=== PATIENT | female | born 1980 | race Asian ===

== ENCOUNTER 2017-02-10 14:04 | Emergency (ER) | payer OTHER ==
[~2017-02-10] VITALS: Ht 167.6 cm; Wt 84.4 kg
[~2017-02-10 14:04] MED LIST: ACID CONTROL150 MG OR; ALBU90AE13 INH; ALPR1TAB61 PO; AMBIEN5 MG PO; AMIT25TA22 PO; AMOX875T8 PO; CIPRO500 MG PO; CLARITIN10 M1 PO; CLON0.5T36 PO; CYCL10TA35 PO; CYPR4TAB PO; FERR325T5 PO; FERROUS SULF325 M1 PO; FURO20TA67 PO; GABA300C2 PO; HYDR-2748 PO; HYDR10TA47 PO; HYDR10TA47A PO; KLOR-CON M1010 MEQ PO; LEXAPRO10 MG OR; LIDOPATCH TOP; LORA10TA3 PO; MEDROL DOSEPAK4 MG OR; MEDROL DOSEPAK4 MG PO; MOBIC7.5 M1 PO; MUPI2OIN2 TOP; NORETHIN ACE5 MG PO; NYSTATIN100000 MG PO; PROM25TA52 PO; PYRIDIUM100 MG PO; TRIM800T12 PO; XANAX XR1 MG OR; XANAX XR1 MG PO; ZANTAC300 MG PO
[2017-02-10] MEDS ORDERED: OXYCODONE30 MG PO (17:54)
[2017-02-10 18:10] VITALS: BP 141/84; TEMP 99.1
== END 2017-02-10 18:14 | disposition home or self-care (01) ==
LOC: ED 14:04
DX: S13.8XXA Sprain of joints and ligaments of other parts of neck, initial encounter (principal); V43.52XA Car driver injured in collision with other type car in traffic accident, initial encounter; Y93.89 Activity, other specified; Y92.89 Other specified places as the place of occurrence of the external cause; Y99.8 Other external cause status; S39.012A Strain of muscle, fascia and tendon of lower back, initial encounter
CPT/HCPCS: 99281

== ENCOUNTER 2017-09-14 07:59 | Outpatient (CLI) | payer OTHER ==
[~2017-09-14 07:59] MED LIST changes: +OXYCODONE30 MG PO
[2017-09-14 08:25] LABS: PLATELET COUNT 315 K/uL (152-353)
[2017-09-14 09:11] LABS: POTASSIUM 3.4 mmol/L (3.6-5.2); SODIUM 138 mmol/L (136-145)
== END 2017-09-14 19:01 | disposition home or self-care (01) ==
LOC: LABW 07:59
PROVIDERS: Family Medicine
DX: M54.9 Dorsalgia, unspecified (principal); F41.9 Anxiety disorder, unspecified; G47.00 Insomnia, unspecified; S39.92XA Unspecified injury of lower back, initial encounter; S79.912A Unspecified injury of left hip, initial encounter; G62.9 Polyneuropathy, unspecified; Z83.3 Family history of diabetes mellitus
CPT/HCPCS: 36415; 80053; 80061; 81000; 82306; 83036; 83735; 84439; 84443; 84550; 85027

== ENCOUNTER 2018-06-08 11:49 | Outpatient (CLI) | payer OTHER ==
[2018-06-08 12:24] LABS: PLATELET COUNT 337 K/uL (152-353)
[2018-06-08 12:42] LABS: POTASSIUM 3.5 mmol/L (3.6-5.2)
== END 2018-06-08 23:59 | disposition home or self-care (01) ==
LOC: LABW 11:49
PROVIDERS: Family Medicine
DX: Z83.3 Family history of diabetes mellitus (principal); Z90.09 Acquired absence of other part of head and neck; Z82.49 Family history of ischemic heart disease and other diseases of the circulatory system
CPT/HCPCS: 36415; 80053; 80061; 81000; 82306; 83036; 84439; 84443; 85027

== ENCOUNTER 2019-02-20 08:59 | Outpatient (CLI) | payer OTHER | END 2019-02-20 19:22 | disposition home or self-care (01) | LOC: US 08:59 | DX: R22.1 Localized swelling, mass and lump, neck (principal) ==

== ENCOUNTER 2019-05-05 09:39 | Outpatient (CLI) | payer OTHER ==
[2019-05-05 10:15] LABS: PLATELET COUNT 317 K/uL (152-353)
[2019-05-05 10:34] LABS: POTASSIUM 3.2 mmol/L (3.6-5.2)
== END 2019-05-05 23:37 | disposition home or self-care (01) ==
LOC: LABW 09:39
PROVIDERS: Emergency Medicine
DX: I10 Essential (primary) hypertension (principal); R19.7 Diarrhea, unspecified; R63.4 Abnormal weight loss; G89.29 Other chronic pain; F11.20 Opioid dependence, uncomplicated; E87.6 Hypokalemia
CPT/HCPCS: 36415; 80053; 81000; 82728; 83540; 83550; 84436; 84443; 84479; 85027